=== PATIENT | female | born 1955 | race Caucasian/White ===

== ENCOUNTER 2018-07-26 19:29 | Emergency (ER) | payer BC ==
[2018-07-26] MEDS: NICARDipine HCL 30 MG CAPSULE PO (19:58)
== END 2018-07-26 21:02 | disposition home or self-care (01) ==
LOC: E/R 19:29
DX: R42 Dizziness and giddiness (principal); I10 Essential (primary) hypertension
CPT/HCPCS: 82962; 93005; 99283-25